=== PATIENT | female | born 1970 ===

== ENCOUNTER 2021-04-07 11:34 | Outpatient (REF) | payer BC, SELFPAY ==
[2021-04-07 11:50] LABS: HCG Qual (Urine) Negative
== END 2021-04-07 11:35 | disposition home or self-care (01) ==
LOC: LBN 11:34
PROVIDERS: Visit Provider Radiology Radiation Oncology
DX: C50.912 Malignant neoplasm of unspecified site of left female breast (principal)
CPT/HCPCS: 81025